=== PATIENT | male | born 1960 | race Hispanic/Latino ===

== ENCOUNTER 2016-10-29 12:48 | Day surgery (SDC) | payer OTHER ==
[2016-10-24 11:28] VITALS: BMI 34.1
[2016-10-29] MEDS ORDERED: Midazolam 2 MG/2 ML VIAL ONE ×3 (14:19→17:11)
[2016-10-29] MEDS ORDERED: Iodixanol 320 MG/ML 200 ML BOTTLE IV ONE ×2 (14:20→15:16)
[2016-10-29] MEDS ORDERED: Iodixanol 320 MG/ML 100 ML BOTTLE IV ONE (14:20)
--- NOTE | 2016-10-29 18:32 | CP.SDSHP ---
Same Day Surgery H & P - History Proposed Procedure: see [facility] consult. no change - Allergies Allergies: Allergies No Known Allergies Allergy (Verified 10/04/16 07:46) Short Stay Discharge - Short Stay Discharge Admitting Diagnosis/Reason for Visit: PERIPHERAL ANGIOGRAM Disposition: HOME/ ROUTINE
[2016-10-29] MEDS ORDERED: Sodium Chloride 0.45% 1,000 ML IV SCH (18:45)
--- NOTE | 2016-10-30 05:36 | OP ---
PROCEDURE DATE: 10/29/2016 PREOPERATIVE DIAGNOSES: Peripheral vascular disease with claudication and ulcer of the left lower extremity. POSTOPERATIVE DIAGNOSES: Peripheral vascular disease with claudication and ulcer of the left lower extremity. PROCEDURES PERFORMED: Retrograde access, right common femoral artery, selective catheter replacement in the left tibioperoneal trunk via contralateral approach, abdominal aortography, bilateral iliofemoral runoff, bilateral extremity angiography, use of the Seanor Ocelot Lumivascular chronic total occlusion device, distal embolic protection placement in the left popliteal artery, drug-coated balloon angioplasty, left popliteal and left superficial femoral artery, and drug coated stent placement left popliteal and left superficial femoral artery. SURGEON: Jl Alcocer MD COMPLICATIONS: None. HISTORY: As follows: The patient is a 56-year-old male with past medical history of hypertension, hypercholesterolemia, and smoking, who has ulcer of the left lower extremity. The patient was found to have occlusion of the left superficial femoral artery via CT angiogram. Antibiotic therapy was given. He is referred for peripheral angiography. DESCRIPTION OF PROCEDURE: After obtaining informed consent, the patient was prepped and draped in the usual sterile fashion. The right groin was anesthetized with 2% lidocaine solution. A 5-Pakistani sheath was inserted into the common femoral artery via modified Seldinger technique. Another Pakistani catheter was advanced into infrarenal abdominal aorta. Abdominal aortography was performed. The sheath was exchanged followed by abdominal aortography, bilateral iliofemoral runoff using digital subtraction. The patient had selective catheter replacement followed by intervention which is performed, which is described separately below. The infrarenal abdominal aorta is free of aneurysm or dissection. Bilateral renal arteries have no significant stenosis. Mild disease is noted in the iliac arteries bilaterally. There was eccentric calcification noted of the common iliac arteries. The right superficial femoral artery has mild disease throughout its course. A 3-vessel runoff is noted. The proximal left superficial femoral artery is occluded 100%. There is a chronic total occlusion. The vessels reconstitutes at the mid popliteal artery above the knee joint. There is 3-vessel runoff to the left foot. The sheath was exchanged for a 6 x 45 cm Callision Destination Sheath. Heparin was given to achieve therapeutic activated clotting time. An Genome guidewire was advanced into the proximal cath. The Seanor Ocelot Lumivascular chronic total occlusion crossing device was advanced over the guidewire to the proximal cath. Using Lumivascular imaging, the chronic total occlusion was navigated with the Ocelot device. Imaging revealed mixed fibrous plaque, which also had areas which were soft. There was no significant calcification noted. The distal cath was crossed and the guidewire was advanced to the peroneal artery. The Ocelot device was removed. A support catheter was then advanced over guidewire to the perineal artery. The guidewire was removed and an Genome Bare guidewire was advanced to peroneal artery. Support catheter was removed. An Emboshield was deployed over the Bare wire in the distal popliteal artery. Angioplasty of the chronic total occluded segment was performed with 4 x 200 mm balloon with 2 separate inflations. This revealed residual stenosis. Drug coated balloon angioplasty was performed with a 5 x 120 mm balloon. A second 5 x 120 mm drug coated balloon was used to perform drug coated balloon angioplasty in the proximal segment. The proximal cath had irregularities and haziness, and therefore decision was made to perform drug coated stent placement. The Zilver PTX 6 x 120 mm drug coated stent was positioned and deployed successfully. A second Zilver PTX was required due to recoil of the distal superficial femoral artery and popliteal artery. The stent was deployed successfully. Full stent expansion was obtained with a 5 x 100 mm balloon. Angiography revealed excellent stent expansion, brisk antegrade flow and preserved 3-vessel runoff to the left foot. The sheath was exchanged for short 6-Pakistani sheath which is secured to the right groin. There were no complications. CONCLUSIONS: Successful use of the Seanor Lumivascular chronic total occlusion crossing device with successful drug coated balloon angioplasty and drug eluting stent placement in the left superficial femoral artery and left popliteal artery. PLAN: The patient will be placed on antiplatelet therapy. A sheath will be removed. Medical therapy will be employed. Jl Alcocer MD [facility]
[2016-10-30 13:12] VITALS: RESP 19; O2SAT 98
== END 2016-10-29 20:40 | disposition home or self-care (01) ==
LOC: C.CATHLAB 12:48
PROVIDERS: ATTEND Internal Medicine Cardiovascular Disease
DX: I70.212 Atherosclerosis of native arteries of extremities with intermittent claudication, left leg (principal); I73.9 Peripheral vascular disease, unspecified; I10 Essential (primary) hypertension; E78.00 Pure hypercholesterolemia, unspecified; L97.929 Non-pressure chronic ulcer of unspecified part of left lower leg with unspecified severity
CPT/HCPCS: 36247; 37226; 37227; 75625; 75716; 75774; 82948; 85347; C1725; C1766; C1769; C1884; C1887; J0360; J1644; J2250; J3010; J7030; Q9966; Q9967